=== PATIENT | female | born 1960 | race Caucasian/White ===

== ENCOUNTER 2017-09-14 04:15 | Emergency (ER) | payer MEDICAID ==
[~2017-09-14 04:15] MED LIST changes: -CEPH500T7 PO
[2017-09-14 04:16] VITALS: BP 134/87
[2017-09-14] MEDS ORDERED: IBUPROFEN 600 MG TAB PO ONE (04:30)
[2017-09-14] MEDS ORDERED: OLANZapine ZYDIS ODT 5MG TABDP PO ONE (04:30)
[2017-09-14] MEDS ORDERED: CEPHALEXIN MONO 500 MG CAP PO ONE (04:30)
--- NOTE | 2017-09-14 04:43 | ER Report ---
History and Physical Time Seen By MD: 04:16 Hx. of Stated Complaint: Pt states she is blessed by god and has bilateral ear pain related to witchcraft. HPI/ROS CHIEF COMPLAINT: Bilateral ear pain HISTORY OF PRESENT ILLNESS: 57-year-old female brought in by ambulance from home complaining of bilateral ear pain. She describes sharp pain in both ears radiating to the top of her head. She has a productive cough. She's had no fevers. She has a having a lot of tangential and inappropriate reasoning as the cause to her pain in her ears. She states that she's been blessed by God. She notes no nasal drainage, no ear drainage. She denies bad teeth. She denies TMJ disorder. Patient further denies suicidal ideation or homicidal ideation. She denies substance abuse or alcohol. REVIEW OF SYSTEMS: Respiratory: No cough, no dyspnea. Cardiovascular: No chest pain, no palpitations. Gastrointestinal: No vomiting, no abdominal pain. Musculoskeletal: No back pain. Allergies: Coded Allergies: Penicillins (Unverified Allergy, Intermediate, NAUSEA/VOMITING, 05/13/15) Home Meds Active Scripts Cephalexin 500 Mg Tab (KEFLEX 500 MG TAB) 500 Mg Tablet, 500 MG PO TID for infection, #20 TAB Prov:TREY CORBETT DO 09/14/17 Discontinued Scripts Methylprednisolone (METHYLPREDNISOLONE) 4 Mg Tab.ds.pk, 4 MG PO DIRECTED, # 21 TAB 0 Refills ON DAY ONE: TAKE 2 TABLETS BEFORE BREAKFAST, 1 TABLET AFTER LUNCHANDAFTERSUPERAND 2 TABLETS AT BEDTIME. ON DAY TWO: TAKE 1 TABLET BEFORE BREAKFAST, 1 TABLET AFTER LUNCH [id number]. ON DAY THREE: TAKE 1 TABLET BEFORE BREAKFAST AND 1 TABLET AFTERLUNCH, AFTERSUPER, AND AT BETIME. ON DAY FOUR: TAKE ONE TABLET BEFORE BREAKFAST, AFTER LUNCH ANDATBEDTIME. ON DAY FIVE: TAKE 1 TABLET BEFORE BREAKFAST AND AT BEDTIME. ON DAY SIX: TAKE 1 TABLET BEFORE BREAKFAST. Prov:HILLARY CAICEDO MD 05/13/15 Cyclobenzaprine Hcl (CYCLOBENZAPRINE HCL) 10 Mg Tablet, 10 MG PO TID Y for MUSCLE SPASMS, #30 TAB 0 Refills Prov:HILLARY CAICEDO MD 05/13/15 Reviewed Nurses Notes: Yes Old Medical Records Reviewed: Yes Hx Smoking: Yes Smoking Status: Current: Every Day Smoker Exposure to Second Hand Smoke?: Yes Hx Substance Use Disorder: No Hx Alcohol Use: Yes (CURRENT) Constitutional Vital Sign - Last 24 Hours 09/14/17 04:16 Temp 99.5 Pulse 101 Resp 20 B/P (MAP) 134/87 Pulse Ox 94 O2 Delivery Room Air Physical Exam Vital signs stable, 99 5, pulse ox normal General Appearance: The patient is alert, has no immediate need for airway protection and no current signs of toxicity. Alert and oriented 3, acute psychosis,? Schizophrenia HEENT: Pupils equal and round no injection. -Photophobia TMs are normal bilaterally, TMJs are nontender, nasal passages are erythematous without drainage, oropharynx is moderately erythematous without exudate Respiratory: Chest is non tender, lungs are clear to auscultation. No wheezing or rails Cardiac: regular rate and rhythm Gastrointestinal: Abdomen is soft and non tender, no masses, bowel sounds normal. Musculoskeletal: Neck: Neck is supple and non tender. Extremities have full range of motion and are non tender. Skin: No rashes or lesions. DIFFERENTIAL DIAGNOSIS: After history and physical exam differential diagnosis was considered for pharyngitis, sinus infection, tooth abscess, dental pain, TMJ disorder, ear pain, otitis media, eustachian tube dysfunction. Additionally , altered mental status including but not limited to hypoglycemia, infectious process, electrolyte abnormality, head injury, substance withdrawal, acute psychosis, schizophrenia and intoxicants. Medical Decision Making ED Course/Re-evaluation ED Course Patient was admitted to an examination room. H&P was done. The differential diagnoses was considered. Patient with a low-grade fever and a productive cough. Patient's complaining of bilateral ear pain, however. Tympanic membranes appear normal. Patient has palpable lymph nodes in her neck in the anterior cervical chain. Patient also expressing acute delusions. She denies suicidal ideation. Patient be covered with amoxicillin for acute pharyngitis and bronchitis. Patient is medicated with Zyprexa 10 mg for her acute delusions. Patient advised to follow up with [facility].. Decision to Disposition Date: Sep 14, 2017 Decision to Disposition Time: 04:43 Depart Departure Latest Vital Signs Vital Signs Date Time Temp Pulse Resp B/P (MAP) Pulse Ox O2 Delivery O2 Flow Rate FiO2 09/14/17 04:16 99.5 101 20 134/87 94 Room Air Impression: Primary Impression: Acute pain of both ears Additional Impressions: Altered mental status, unspecified Bronchitis Condition: Improved Disposition: HOME OR SELF-CARE Referrals: CLEMENTE GARCIA DO (PCP) New Scripts Cephalexin 500 Mg Tab (KEFLEX 500 MG TAB) 500 Mg Tablet 500 MG PO TID for infection, #20 TAB Prov: TREY CORBETT DO 09/14/17 Patient Instructions: Acute Bronchitis (ED) Additional Instructions: Take ibuprofen 200 mg 3 tablets 3 times a day for ear pain relief Take Robitussin-DM for cough suppression Follow-up with your primary care if unimproved in 3-5 days Follow-up with [facility] [phone], [address] Problem Qualifiers Additional Impressions: Altered mental status, unspecified Altered mental status type: unspecified Qualified Codes: R41.82 - Altered mental status, unspecified TREY CORBETT DO Sep 14, 2017 04:43
[2017-09-14] MEDS ORDERED: CEPH500T7 PO (04:46)
== END 2017-09-14 04:53 | disposition home or self-care (01) ==
LOC: ER 04:25
DX: J40 Bronchitis, not specified as acute or chronic (principal); R41.82 Altered mental status, unspecified; H92.03 Otalgia, bilateral
CPT/HCPCS: 99283

== ENCOUNTER → 2017-09-14 | Outpatient (CLI) | payer MEDICAID ==
[~2017-09-14] MED LIST: AUG875 PO; CEPH500T7 PO; CYCL10TA29 PO; METH4TAB66 PO; NO ROUTINE MEDS; PER PO
== END ==
LOC: AMB 04:07
PROVIDERS: ATTEND Nurse Practitioner
DX: H92.09 Otalgia, unspecified ear (principal); R41.82 Altered mental status, unspecified
CPT/HCPCS: A0425; A0429

== ENCOUNTER 2017-12-06 14:15 | Emergency (ER) | payer MEDICAID ==
[~2017-12-06 14:15] MED LIST changes: +CEPH500T7 PO
[2017-12-06 14:19] VITALS: BP 121/84
--- NOTE | 2017-12-06 14:27 | ER Report ---
History and Physical Time Seen By MD: 14:27 HPI/ROS HPI: 57-year-old female presents to the ED with complaints of right sided facial swelling. Reports, "this all started today and I know it is all due to witchcraft." She reports some pain when eating a sandwich early today and some difficulty swallowing. No treatments tried. No additional associations identified. ROS General: denies fevers Head: denies CARLISLE Ears: denies ear pain Mouth: denies mouth pain, denies dental pain Throat: Reports dysphagia Cardiac: denies chest pain Respiratory: denies difficulty breathing GI: denies nausea or vomiting Allergies: Coded Allergies: Penicillins (Unverified Allergy, Intermediate, NAUSEA/VOMITING, 05/13/15) Home Meds Active Scripts Amoxicillin/Pot Clav 875-125 Mg Tab (AUGMENTIN 875-125 TABLET) 1 Each Tablet, 1 TAB PO Q12H, #14 TAB Prov:ANGELMADALYN BUSINESS MANAGEMENT SPECIALIST 12/06/17 Discontinued Scripts Cephalexin 500 Mg Tab (KEFLEX 500 MG TAB) 500 Mg Tablet, 500 MG PO TID for infection, #20 TAB Prov:TREY CORBETT DO 09/14/17 Past Medical/Surgical History denies history of medical illness or hospitalizations. Hx Smoking: Yes Smoking Status: Current: Every Day Smoker Exposure to Second Hand Smoke?: Yes Hx Substance Use Disorder: No Hx Alcohol Use: Yes (CURRENT) Constitutional Vital Sign - Last 24 Hours 12/06/17 14:19 Temp 98.0 Pulse 97 Resp 14 B/P (MAP) 121/84 Pulse Ox 94 O2 Delivery Room Air Physical Exam General: appears in mild distress, reality dissociation, easily agitated. Skin: no presence of rash head: normocephalic, atraumatic Eyes: non-injected, pupils - round, reactive to light and accommodation bilaterally Ears: tympanic membranes shreyas white with visualization of the lateral process of malleus and cone of light bilaterally Nose: midline, no rhinorrhea Mouth, Throat: pink and moist, no ulcers or lesions Neck: midline, no lymphadenopathy Respiratory: CTA BL CV:Clear S1 S2 Neuro: cranial nerves grossly intact Psych: reality dissociation, pressured speech, anxious Differential diagnoses considered include the following - salivary gland infection, periodontal infection, and peritonsillar infection. Medical Decision Making ED Course/Re-evaluation ED Course 57-year-old female presented to the ED with right sided facial swelling. She reports the swelling was noticed this morning. She experienced pain when eating a sandwich earlier today. The patient has some dissociation from reality and reports the swelling is due to witchcraft. The patient appears anxious and depicts some distrust in the medical system. The client reports feeling safe in the ED and feeling safe at home. History and physical examination obtained. Differential diagnoses considered and discussed with the patient. The patient agrees to complete a course of azithromycin for likely salivary gland infection. The patient has been encouraged to return to the ED if her condition worsens. Decision to Disposition Date: Dec 06, 2017 Decision to Disposition Time: 14:54 Depart Departure Latest Vital Signs Vital Signs Date Time Temp Pulse Resp B/P (MAP) Pulse Ox O2 Delivery O2 Flow Rate FiO2 12/06/17 14:19 98.0 97 14 121/84 94 Room Air Impression: Primary Impression: Sialadenitis Condition: Improved Disposition: HOME OR SELF-CARE Referrals: CLEMENTE GARCIA DO (PCP) New Scripts Amoxicillin/Pot Clav 875-125 Mg Tab (AUGMENTIN 875-125 TABLET) 1 Each Tablet 1 TAB PO Q12H, #14 TAB Prov: MADALYN ORTIZ 12/06/17 Patient Instructions: Sialoadenitis (ED) Additional Instructions: Take the antibiotics as directed. Follow up with your primary care provider in the next week. Eat foods that are sour, such as lemon candy or lemon. Return to the ER if condition worsens. MADALYN ORTIZ Dec 06, 2017 14:27
[2017-12-06] MEDS ORDERED: CLIN300C99 PO (14:51)
[2017-12-06] MEDS ORDERED: AMOX-559 PO (14:57)
== END 2017-12-06 15:03 | disposition home or self-care (01) ==
LOC: ER 14:36
DX: K11.20 Sialoadenitis, unspecified (principal)
CPT/HCPCS: 99281

== ENCOUNTER 2018-08-09 03:16 | Emergency (ER) | payer MEDICAID ==
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
== END 2018-08-09 05:00 | disposition home or self-care (01) ==
LOC: ER 03:31
DX: S00.83XA Contusion of other part of head, initial encounter (principal); F10.920 Alcohol use, unspecified with intoxication, uncomplicated; Y04.8XXA Assault by other bodily force, initial encounter; M89.9 Disorder of bone, unspecified
CPT/HCPCS: 70450; 70486; 99284

== ENCOUNTER → 2018-08-09 | Outpatient (CLI) | payer MEDICAID ==
[~2018-08-09] MED LIST changes: +AMOX-559 PO; +CLIN300C99 PO
== END ==
LOC: AMB 02:55
PROVIDERS: ATTEND Nurse Practitioner
DX: S00.83XA Contusion of other part of head, initial encounter (principal); R22.0 Localized swelling, mass and lump, head; Y09 Assault by unspecified means
CPT/HCPCS: A0425; A0429

== ENCOUNTER 2018-12-01 20:32 | Emergency (ER) | payer MEDICAID ==
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
[2018-12-01] MEDS ORDERED: NS(*) 0.9% 1000 ML BAG 1,000 ML IV ONE (20:41)
[2018-12-01] MEDS ORDERED: DIPHTH/TETANUS/ACEL. PERTUSSIS IM ONE (20:45)
[2018-12-01 21:00] LABS: PLATELET COUNT, AUTOMATED 147 K/uL (150-450)
[2018-12-01] MEDS ORDERED: IOPAMIDOL 76% 100 ML INFUS BTL 100 ML ONE (21:07)
[2018-12-01] MEDS ORDERED: OLANZapine 10 MG VIAL IM ONLY ONE (21:30)
[2018-12-01] MEDS ORDERED: WATER STERILE 10 ML VIAL IM ONLY ONE (21:30)
[2018-12-01] MEDS ORDERED: LORazepam 2 MG/ML VIAL IVP ONE ×2 (21:30→22:50)
[2018-12-01] MEDS ORDERED: KETAMINE HCL 500 MG/5 ML VIAL IVP ONE ×2 (21:45→21:50)
--- NOTE | 2018-12-01 22:46 | RADIOLOGY IMAGING REPORT ---
FACILITY: [facility] [place] PATIENT NAME: Felecia Rodriguez : 1960 MR: [id number] V: [id number] EXAM DATE: ORDERING PHYSICIAN: NESTOR BABIN TECHNOLOGIST: Location: [facility] Patient: Felecia Rodriguez : 1960 Visit/Account:[id number] Date of Sevice: 12/01/2018 CT BRAIN NO CONTRAST HISTORY: Trauma COMPARISON STUDIES: CT brain 08/09/2018 TECHNIQUE: Contiguous axial images were obtained from the skull base to the vertex. One of the [employer] dose optimization techniques was utilized in the performance of this exam: automated exposure co ntrol; adjustment of the mA and/or kv according to patient size; or use of iterative reconstruction t echnique. Specific details can be referenced in the facility's radiology CT exam operational policy. FINDINGS: Hemorrhage: Negative Ventricles / sulci / fissures: Stable mild atrophy Masses / midline shift: Negative White matter: Negative Montanez-white differentiation: Negative Vessels: Negative Extra-axial spaces: Negative Bones/skull base: Negative Visualized mastoid air cells / paranasal sinuses: Negative Scalp and soft tissues: Negative. Other findings: None significant IMPRESSION: 1. No evidence of acute intracranial injury. Report Dictated By: Vinny Salguero MD at 12/01/2018 10:39 PM Report E-Signed By: Vinny Salguero MD at 12/01/2018 10:42 PM WSN:[id number]
--- NOTE | 2018-12-01 22:48 | RADIOLOGY IMAGING REPORT ---
FACILITY: [facility] PATIENT NAME: Felecia Rodriguez : 1960 MR: [id number] V: [id number] EXAM DATE: ORDERING PHYSICIAN: NESTOR BABIN TECHNOLOGIST: Location: [facility] Patient: Felecia Rodriguez : 1960 Visit/Account:[id number] Date of Sevice: 12/01/2018 CT VERTEBRA CERVICAL (NON CON) HISTORY: Trauma COMPARISON STUDIES: none TECHNIQUE: Axial images were obtained from the skull base through the upper thoracic spine without i ntravenous contrast. Coronal and sagittal reformatted images were obtained from the axial source data . One of the following dose optimization techniques was utilized in the performance of this exam: aut omated exposure control; adjustment of the mA and/or kv according to patient size; or use of iterativ e reconstruction technique. Specific details can be referenced in the facility's radiology CT exam op erational policy. FINDINGS: Pre-vertebral soft tissues: Negative Fracture/alignment: negative Vertebral bodies: Negative Posterior elements: Multilevel mild facet degeneration. Disc Spaces: Mild to moderate degenerative disc disease from C4-C7 with mild uncovertebral joint hype rtrophy. Visualized soft tissues anterior neck: Negative Visualized lung / mediastinum: Please see separate report Other findings: None significant IMPRESSION: 1. Negative for acute fracture or spondylolisthesis within the cervical spine. Report Dictated By: Vinny Salguero MD at 12/01/2018 10:42 PM Report E-Signed By: Vinny Salguero MD at 12/01/2018 10:45 PM WSN:[id number]
--- NOTE | 2018-12-01 22:57 | RADIOLOGY IMAGING REPORT ---
[place] [facility] [place]: Felecia Rodriguez : 1960 MR: [id number] V: [id number] EXAM DATE: ORDERING PHYSICIAN: NESTOR BABIN TECHNOLOGIST: Location: [facility] [place] Patient: Felecia Rodriguez : 1960 Visit/Account:[id number] Date of Sevice: 12/01/2018 CT CHEST ABDOMEN PELVIS W/CON HISTORY: Trauma TECHNIQUE: CT imaging was obtained through the chest, abdomen and pelvis with intravenous contrast. One of the following dose optimization techniques was utilized in the performance of this exam: autom ated exposure control; adjustment of the mA and/or kv according to patient size; or use of iterative reconstruction technique. Specific details can be referenced in the facility's radiology CT exam oper ational policy. CONTRAST: 75 cc of Isovue-370 COMPARISON: None. FINDINGS: CHEST: Lower neck: Negative. Vessels: Negative. Heart and pericardium: Negative Mediastinum/hilum/lymph nodes: Negative. Lungs/pleura: No pneumothorax, pleural effusion or pulmonary contusion. 2 cm thin-walled air cyst wi thin the left lower lobe. Bones/soft tissues: Chronic appearing deformity of the left lateral fourth rib. Other findings: None significant ABDOMEN/PELVIS: Hepatobiliary: Mild nodular hepatic contour. No perihepatic fluid. Spleen: Negative. Adrenals: Mild adenomatous hyperplasia of the left adrenal gland. Right adrenal is normal. Pancreas: Negative. Kidneys/ureters/bladder: Negative. Bowel/peritoneum/mesentery: No free air. No free fluid. Vessels: Negative. Lymph nodes: Negative. Pelvic genitourinary: Enlarged uterus with multiple fibroids. Tubal ligation clips. Bones/soft tissues: Multilevel mild degenerative disc disease within the lumbar spine.. Other findings: None significant IMPRESSION: 1. No evidence of acute traumatic injury to the chest, abdomen or pelvis. 2. Chronic appearing healed left lateral fourth rib fracture. 3. Nodular hepatic contour which may indicate underlying cirrhosis 4. Enlarged fibroid uterus. Report Dictated By: Vinny Salguero MD at 12/01/2018 10:46 PM Report E-Signed By: Vinny Salguero MD at 12/01/2018 10:54 PM WSN:[id number]
[2018-12-01 23:11] LABS: INR 0.98
== END 2018-12-02 01:51 | disposition home or self-care (01) ==
LOC: ER 20:34
DX: F10.920 Alcohol use, unspecified with intoxication, uncomplicated (principal); R41.82 Altered mental status, unspecified; S01.81XA Laceration without foreign body of other part of head, initial encounter; N85.2 Hypertrophy of uterus
CPT/HCPCS: 36416; 70450; 71260; 72125; 74177; 80305; 81001; 82948; 83605; 83690; 85025; 85610; 85730; 96372; 96374; 96375; 99284; A4216; A4353; G0480; J2060; J3490; J7030; Q9967; 80320; 82040; 82247; 82310; 82374; 82435; 82565; 82947; 84075; 84132; 84155; 84295; 84450; 84460; 84520

== ENCOUNTER → 2018-12-01 | Outpatient (CLI) | payer MEDICAID | LOC: AMB 19:48 | DX: R68.84 Jaw pain (principal); V89.1XXA Person injured in unspecified nonmotor-vehicle accident, nontraffic, initial encounter; F10.10 Alcohol abuse, uncomplicated | CPT/HCPCS: A0425; A0427 ==